=== PATIENT | male | born 1960 | race Caucasian/White ===

== ENCOUNTER 2021-04-03 22:28 | Emergency (ER) | payer OTHER ==
[2021-04-03] MEDS ORDERED: LIDOCAINE 1% INJ 10MG/ML (20 ML MDV) SQ STA (22:44)
[2021-04-03 22:46] VITALS: BP 112/93; PULSE 79; RESP 16; TEMP 98.3
--- NOTE | 2021-04-03 23:08 | ED ---
Upper Extremity HPI - General Chief Complaint: Extremity Injury, Upper Stated Complaint: Injury to RT hand Time Seen by Provider: 04/03/21 22:39 Source: patient, RN notes reviewed Mode of arrival: ambulatory Limitations: no limitations - History of Present Illness Initial Comments: [id number] 61-year-old male fell on the ice at the hockey game. Patient states he cut his right little finger on the ulnar aspect. He denies any pain. He denies any other injuries. Patient denies chance of foreign body. 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 She took a look at the wound at the site and thought he might need stitches. Patient is refusing x-ray. He is up-to-date on tetanus. No history of immunosuppression or diabetes. Injury occurred just prior to arrival. MD Complaint: Injury to:: right, finger - Related Data Allergies Allergy/AdvReac Type Severity Reaction Status Date / Time No Known Allergies Allergy Verified 04/03/21 22:32 Review of Systems ROS Statement: Those systems with pertinent positive or pertinent negative responses have been documented in the HPI. ROS Other: All systems not noted in ROS Statement are negative. Past Medical History Past Medical History: No Reported History History of Any Multi-Drug Resistant Organisms: None Reported Past Surgical History: No Surgical Hx Reported, Cholecystectomy, Orthopedic Surgery Past Psychological History: No Psychological Hx Reported Smoking Status: Former smoker Past Alcohol Use History: Rare Past Drug Use History: None Reported General Exam - General Exam Comments Initial Comments: No distress, does not appear to be alert toxic. Limitations: no limitations General appearance: alert, in no apparent distress Head exam: Present: atraumatic, normocephalic, normal inspection Eye exam: Present: normal appearance, PERRL, EOMI. Absent: scleral icterus, conjunctival injection, periorbital swelling ENT exam: Present: normal exam, mucous membranes moist Neck exam: Present: normal inspection. Absent: tenderness, meningismus, lymphadenopathy Respiratory exam: Present: normal lung sounds bilaterally. Absent: respiratory distress, wheezes, rales, rhonchi, stridor Cardiovascular Exam: Present: regular rate, normal rhythm, normal heart sounds. Absent: systolic murmur, diastolic murmur, rubs, gallop, clicks Extremities exam: Present: full ROM (Full range of motion and strength with regards to all phalanges, hand, and wrist. Distal sensation intact.Refill less than 2 seconds.), normal capillary refill, other (1.5 cm laceration to the on the aspect of the right little finger overlying the proximal phalanx. No contamination, no functional impairment.). Absent: normal inspection, ten derness, joint swelling Back exam: Present: normal inspection, full ROM. Absent: tenderness Neurological exam: Present: alert, oriented X3, CN II-XII intact Psychiatric exam: Present: normal affect, normal mood Course Vital Signs 04/03/21 04/03/21 22:32 22:44 Temperature 97.4 F L 98.3 F Pulse Rate 65 79 Respiratory 20 16 Rate Blood Pressure 133/70 112/93 O2 Sat by Pulse 99 97 Oximetry Procedures - Laceration Laceration #1 Indication: laceration Site: hand (Right fifth finger) Size (cm): 2 Description: irregular Depth: simple, single layer Anesthetic Used: lidocaine 1% Anesthesia Technique: local infiltration Amount (mls): 3 Pre-repair: wound explored, irrigated extensively, deep structures intact, foreign body removed Size of Sutures: 5-0 Number of Sutures: 2 Technique: simple, interrupted Patient Tolerated Procedure: well, no complications Medical Decision Making - Medical Decision Making Isolated right fifth finger laceration, superficial, no chance of foreign body. Patient deferred the x-ray. Patient was up-to-date on tetanus. 2 simple sutures. Patient was counseled on wound care. Patient counseled signs and symptoms of infection. Follow-up with your regular physician as directed. Return to the ER immediately if any symptoms worsen, new symptoms arise, or any other problems develop. Disposition Clinical Impression: Laceration of right little finger without foreign body without damage to nail Disposition: HOME SELF-CARE Condition: Good Instructions (If sedation given, give patient instructions): Finger Laceration (ED) Additional Instructions: Follow-up with your regular physician as directed. Return to the ER immediately if any symptoms worsen, new symptoms arise, or any other problems develop. Suture removal in 8-10 days Wash the wound daily with warm soapy water, keep covered with antibiotic ointment and a bandage Watch for signs and symptoms of infection. Follow-up with your regular doctor in [place] for a wound check in 2 days. Is patient prescribed a controlled substance at d/c from ED?: No Referrals: Nonstaff,Physician [Primary Care Provider] - 04/10/21 (Follow-up with your doctor in [place] as directed) Time of Disposition: 23:01
== END 2021-04-03 22:44 | disposition home or self-care (01) ==
LOC: EC 22:28
DX: S61.216A Laceration without foreign body of right little finger without damage to nail, initial encounter (principal); Z87.891 Personal history of nicotine dependence; Z72.89 Other problems related to lifestyle; W00.9XXA Unspecified fall due to ice and snow, initial encounter; Y93.22 Activity, ice hockey
CPT/HCPCS: 99283; 12041; J2001